=== PATIENT | male | born 1990 | race Asian ===

== ENCOUNTER 2020-04-03 11:25 | Emergency (ER) | payer OTHER ==
[~2020-04-03] VITALS: Ht 170.2 cm; Wt 59.0 kg
[2020-04-03 11:41] VITALS: Ht 170.2 cm; Wt 59.0 kg
[2020-04-03 13:25] VITALS: BP 114/70
== END 2020-04-03 13:25 | disposition home or self-care (01) ==
LOC: EDSEX 11:25 → ED 11:25
DX: S92.335A Nondisplaced fracture of third metatarsal bone, left foot, initial encounter for closed fracture (principal); X58.XXXA Exposure to other specified factors, initial encounter; Y93.89 Activity, other specified; Y92.89 Other specified places as the place of occurrence of the external cause; Y99.8 Other external cause status
CPT/HCPCS: Q0092